=== PATIENT | male | born 1955 | race Two or more races ===

== ENCOUNTER 2025-08-03 09:21 | Day surgery (SDC) | payer BC, SELFPAY ==
[2025-07-15 09:59] VITALS: BMI 33.6
[2025-07-15 10:09] LABS: Hematocrit 43.6 % (39.0-52.0); Hemoglobin 14.9 g/dL (13.0-18.0); Mean Corp Hgb Conc. 34.2 g/dL (33.0-37.0); Mean Corpuscular Volume 90.1 fL (80.0-94.0); Nucleated Red Blood Cells % 0 % (-); Platelet Count 270 10^3/uL (130-400); Red Cell Dist. Width 12.7 % (11.5-14.5)
[2025-07-15 13:26] LABS: ALT (SGPT) 25 U/L (0-50); AST (SGOT) 26 U/L (17-59); Albumin 4.8 g/dl (3.5-5.0); Alkaline Phosphatase 69 U/L (38-126); Blood Urea Nitrogen 14 mg/dl (9-20); Calcium 9.5 mg/dl (8.4-10.2); Carbon Dioxide 26 mmol/L (22-30); Chloride 105 mmol/L (98-107); Estimated Creatinine Clearance 89 ml/min; Glucose 106 mg/dl (70-99); Magnesium 2.2 mg/dl (1.6-2.3); Potassium 4.3 mmol/L (3.5-5.1); Sodium 140 mmol/L (135-145); Total Protein 7.8 g/dl (6.3-8.2); eGFR > 60.00
--- NOTE | 2025-07-16 17:50 | W.PN.UPDATE ---
Update Note
Progress Note Update
ZIO 02/15/2025---03/01/2025:
Final interpretation:
Patient had a min HR of 34 bpm, max HR of 218
bpm, and avg HR of 59 bpm. Predominant underlying rhythm was Sinus
Rhythm. 3 Ventricular Tachycardia runs occurred, the run with the
fastest interval lasting 4 beats with a max rate of 218 bpm, the
longest lasting 10 beats with an avg rate of 114 bpm. 122
Supraventricular Tachycardia runs occurred, the run with the
fastest interval lasting 9 mins 3 secs with a max rate of 200 bpm,
the longest lasting 1 hour 17 mins with an avg rate of 156 bpm.
Supraventricular Tachycardia was detected within +/- 45 seconds of
symptomatic patient event(s). Possible AVNRT. Occasional isolated
PACs ( 3.4 %) with rare PVCs. Pt was symptomatic during SVT, PACs
and PVCs.
[2025-08-03] VITALS (13 sets, daily range): BP systolic 121–164; BP diastolic 75–88
--- NOTE | 2025-08-03 13:41 | ITS.CL.ABL ---
Pressroom Supervisor - Ablation
Ablation
Procedure Report:
ELECTROPHYSIOLOGY ABLATION REPORT
Date of Procedure: August 03, 2025
Referring: Dr. Spencer Wood
INDICATION: Documented narrow complex tachycardia 340�380 ms clinically which is narrow complex
HISTORY: As above. Also noted to have significant reflux and typically sleeps had an elevated position to avoid aspiration
PROCEDURE:
Given the patient's structural airway issues we initially tried to start the procedure under conscious sedation but the patient could not adequately protect his airway from reflux and coughing. As such for patient's safety we elected to perform
intubation to protect his airway and enable the patient to lie flat so that we can complete procedure.
Baseline intracardiac measurements were obtained in sinus rhythm.��HRA, HIS, RVA and CS catheters were placed. 3D mapping with the [employer] mapping system was utilized.
Atrial decremental extrastimuli were delivered from the HRA and the CS.��Single and double extrastimuli as well as burst pacing were performed from both sites in both the baseline state.��Atrial and AVN antegrade ERP�s were determined.��Antegrade as
well as retrograde AVN [place] CL�s were determined.
MEASUREMENTS:
BASELINE
A-A:�1300 ms
P-P:���1300 ms
A-H:�88 ms
H-V����48 ms
P-R:���146 ms awake, 164 ms intubated
QRS:�80 ms
QT:����380 ms
SNRT: Normal at 600 ms
AVN [place]: 580 ms pre and post ablation in the intubated state
AVN Fast Pathway ERP: 600�340 ms
AVN Slow Pathway ERP: 600�290 ms
HIS-Purkinje System: Normal; no distal block
Retrograde Conduction Decremental, Retrograde Block for 20 ms
RVA ERP: 310 ms/600ms�
Ultrasound guidance was utilized for bilateral femoral vein access and [id number] sutures were placed at the end of procedure.
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
ventricular pacing from the RVA showed earliest retrograde atrial activation at the fast pathway position along the decapolar CS catheter, matching that seen during SVT, (3) Atrial activation during SVT began within the first 20 ms of the QRS
complex, excluding bypass tract mediated tachycardia (4) Initiation of SVT was dependent on a critical AH interval (slow pathway engagement), (5) Ventricular pacing at a CL 20-30 ms faster than the SVT CL during the SVT demonstrated advancement of
the atrial electrogram to the pacing CL and when
pacing was terminated, a V-A-V pattern with continuation of SVT was observed practically excluding AT as the SCT mechanism, (6) difference between VA time during pacing at tachycardia cycle length compared to the VA time in tachycardia was 125 ms
further supporting AV joann reentry tachycardia as the mechanism.
SVT was initiated by atrial extrastimuli
SVT could be terminated by ventricular extrastimuli
The SVT cycle length was 410 ms under general anesthesia.; SVT was well-tolerated hemodynamically.
Radiofrequency Catheter Ablation:
Following determination of the SVT mechanism we brought a steerable sheath and exchanged for the 8 [place] short sheath in right femoral vein and the atrial quad was removed. The his position quad was moved to the atrial position to allow better
contact at the slow pathway region.
At a 1-3 AV ratio at the mid to upper CS os junctional beats were noted. Anywhere below this or more ventricular did not induce any junctional's or atypical junctional's. Tachycardia remained inducible until we ablated at the upper position..��A 4
mm tip RF catheter was used with the maximum power��set to 50 W and the maximum temperature set to 52�degrees C. 15 to 30-second lesions were given in these regions. Post ablation tachycardia was noninducible and there was no longer evidence for
slow pathway conduction through a 20-minute waiting period.
After a 20 minute waiting period, stimulation was repeated.��Midline retrograde activation was preserved during RV apical stimulation.
No sustained SVT was induced, a marked contrast to the pre-ablation situation.
COMPLICATIONS: None
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 Tachycardia was no longer inducible and there was no evidence for presence of bypass tract or other
tachyarrhythmia such as atrial tachycardia.
RECOMMENDATIONS:
1. Can discontinue metoprolol altogether. If he is utilizing this for hypertension and tolerates we will lower to 25 mg daily
2. Ambulate in 4 hours consider same-day discharge
== END 2025-08-03 18:27 | disposition home or self-care (01) ==
LOC: CATH 09:21
PROVIDERS: ATTENDING PHYSICIAN Internal Medicine Cardiovascular Disease; FAMILY PHYSICIAN Family Medicine; OTHER PHYSICIAN Student in an Organized Health Care Education/Training Program
DX: I47.19 Other supraventricular tachycardia (principal); R00.1 Bradycardia, unspecified; I47.20 Ventricular tachycardia, unspecified; I10 Essential (primary) hypertension; E78.5 Hyperlipidemia, unspecified; N40.0 Benign prostatic hyperplasia without lower urinary tract symptoms; M10.9 Gout, unspecified; E55.9 Vitamin D deficiency, unspecified; R73.01 Impaired fasting glucose; Z79.899 Other long term (current) drug therapy; Z88.0 Allergy status to penicillin; I49.3 Ventricular premature depolarization; K21.9 Gastro-esophageal reflux disease without esophagitis
CPT/HCPCS: C1730 ×2; C1894; C1766; C1733; 36415; 80053; 83735; 85025; 93005; 93653